=== PATIENT | male | born 2000 | race Caucasian/White ===

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

== ENCOUNTER 2024-10-20 21:04 | Emergency (ER) | payer OTHER, SELFPAY ==
[2024-10-20 22:01] LABS: Absolute Basophils 0.1 K/uL (0-0.5); Absolute Eosinophils 0.2 K/uL (0-0.5); Absolute Lymphocytes (CBC) 2.7 K/uL (0.7-4.9); Absolute Monocytes 0.7 K/uL (0.1-1.3); Absolute Neutrophil 5.4 K/uL (1.8-8.0); Basophils % 0.7 % (0-1.3); Eosinophils % 1.7 % (0-4.4); Hematocrit 42.1 % (39.6-49.0); Lymphocytes % 30.1 % (15.3-44.8); MCH 31.6 pg (27.0-35.0); MCHC 35.8 g/dL (32.0-36.0); MCV 88.4 fL (80-100); MPV 8.6 fL (7.6-11.3); Monocytes % 7.7 % (3.3-12.3); Neutrophils % 59.8 % (41.7-73.7); Nucleated Red Blood Cells % 0.1 % (0-0); Platelets 190 thou/uL (152-406); RBC Red Blood Cell Count 4.76 M/uL (4.33-5.43); Red Cell Distribution Width 12.8 % (12.1-15.2)
[2024-10-20 22:11] LABS: ALT/SGPT 42 U/L (16-61); AST/SGOT 21 U/L (15-37); Albumin 3.8 g/dL (3.4-5.0); Albumin/Globulin Ratio 1.1 (1.1-1.8); Alkaline Phosphatase 128 U/L (45-117); Anion Gap 9.5 mEq/L (5.0-15.0); BUN Blood Urea Nitrogen 12 mg/dL (7-18); Bicarbonate 28 mEq/L (21-32); Bilirubin Total 0.2 mg/dL (0.2-1.0); Creatine Phosphokinase 141 U/L (39-308); Globulin 3.4 g/dL (2.3-3.5); Glomerular Filtration Rate 92 ml/min (=/>90); Glucose Level 120 mg/dL (74-106); Potassium 3.5 mEq/L (3.5-5.1); Protein, Total 7.2 g/dL (6.4-8.2); Sodium Level 138 mEq/L (136-145); Troponin High Sensitivity 4.6 pg/mL (<58.9)
[2024-10-20 22:13] LABS: Bilirubin Direct < 0.2 mg/dL (0-0.2)
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
[2024-10-21 00:24] VITALS: TEMP 98.6
[2024-10-21 00:29] VITALS: BP 134/87; O2SAT 97
--- NOTE | 2024-10-22 12:39 | EKG ---
Test Date: 2024-10-20 Test Time: 23:28:25 English Adjunct Faculty: JENNIE MEASUREMENT RESULTS: Intervals: Rate: 80 ME: 126 QRSD: 88 QT: 366 QTc: 422 [place]: P: 31 ME: 126 QRS: 62 T: 49 INTERPRETIVE STATEMENTS: Normal sinus rhythm with sinus arrhythmia Normal ECG Compared to ECG 09/13/2015 20:47:22 No significant changes Electronically Signed On 10-22-24 12:36:52 CDT by Danielito Anderson
--- NOTE | 2024-10-22 12:40 | EKG ---
Test Date: 2024-10-20 Test Time: 21:23:31 Brush Polisher: SHAMIR MEASUREMENT RESULTS: Intervals: Rate: 81 MA: 128 QRSD: 88 QT: 356 QTc: 413 [place]: P: 28 MA: 128 QRS: 59 T: 46 INTERPRETIVE STATEMENTS: Normal sinus rhythm with sinus arrhythmia Normal ECG Compared to ECG 09/13/2015 20:47:22 No significant changes Electronically Signed On 10-22-24 12:36:59 CDT by Danielito Anderson
== END 2024-10-21 00:01 | disposition home or self-care (01) ==
LOC: ER 21:04
DX: T75.4XXA Electrocution, initial encounter (principal); T75.00XA Unspecified effects of lightning, initial encounter
CPT/HCPCS: 36415; 80048; 80076; 82550; 84484; 85025; 93005; 99283